=== PATIENT | male | born 1955 | race Caucasian/White ===

== ENCOUNTER 2021-08-13 10:33 | Outpatient (CLI) | payer BC ==
[2021-08-13 12:07] LABS: Hemoglobin 13.7 g/dL (13.5-17.5); Mean Corpuscular HGB CONC 33.6 g/dL (32.0-36.0); Mean Corpuscular Hemoglobin 28.5 pg (27.0-33.0); Mean Platelet Volume 9.5 fl (7.4-10.4); Platelet Count 308 10x3/uL (150-450); RBC Distribution Width 14.9 % (11.5-14.5); White Blood Cell (WBC) Count 7.5 10x3/uL (3.5-10.5)
[2021-08-13 12:19] LABS: Prothrombin Time 10.7 sec (9.5-12.1)
[2021-08-13 12:23] LABS: ALT (SGPT) 45 U/L (8-55); AST (SGOT) 31 U/L (5-34); Albumin 4.3 g/dL (3.4-4.8); Alkaline Phosphatase 78 U/L (40-110); Anion Gap 13 mmol/L (10-20); BUN (Urea Nitrogen) 22 mg/dL (8.4-25.7); Bilirubin, Total 0.4 mg/dL (0.2-1.2); Calc. Creatinine Clearance 0 mL/min (70-130); Calcium 8.9 mg/dL (7.8-10.44); Carbon Dioxide 25 mmol/L (23-31); Chloride 105 mmol/L (98-107); Globulin 2.4 g/dL (2.4-3.5); Glucose 101 mg/dL (80-115); Magnesium 1.9 mg/dL (1.6-2.6); Potassium 5.1 mmol/L (3.5-5.1); Protein, Total 6.7 g/dL (5.8-8.1); Sodium 138 mmol/L (136-145)
[2021-08-13 21:13] LABS: SARS-CoV-2 PCR by NAA Not Detected (NotDetected)
== END 2021-08-13 10:34 | disposition home or self-care (01) ==
LOC: CSHLAB 10:33
PROVIDERS: ATTEND Specialist
DX: Z01.812 Encounter for preprocedural laboratory examination (principal); Z20.822 Contact with and (suspected) exposure to COVID-19
CPT/HCPCS: 80053; 83735; 85027; 85610; 85730; U0003; U0005

== ENCOUNTER → 2021-08-16 | Day surgery (SDC) | payer BC ==
[~2021-08-16] MED LIST: Lidocaine 2% PF 5 ML VIAL ONE; PHENYLEPHRINE-NS 100 MCG/ML 10 ML SYRINGE ONE; PROPOFOL 20 ML ONE; Succinylcholine 200 MG/10 ml SYRINGE FS ONE; ePHEDrine Sulfate 50 MG/10 ML VIAL ONE
== END ==
LOC: CSHSDC 09:58
PROVIDERS: ATTEND Specialist
DX: I48.0 Paroxysmal atrial fibrillation (principal); I10 Essential (primary) hypertension; E78.5 Hyperlipidemia, unspecified; I35.1 Nonrheumatic aortic (valve) insufficiency; G47.30 Sleep apnea, unspecified; E66.9 Obesity, unspecified; Z79.899 Other long term (current) drug therapy; Z79.84 Long term (current) use of oral hypoglycemic drugs
CPT/HCPCS: 92960; 93005; 93010; J2001; J2704; J3475